=== PATIENT | male | born 1995 | race Caucasian/White ===

== ENCOUNTER 2024-11-27 15:29 | Emergency (ER) | payer BC, SELFPAY ==
[2024-11-27 15:30] VITALS: BP 147/83; PULSE 85; RESP 16; TEMP 36.7; O2SAT 100; BMI 32.1
[2024-11-27 18:08] VITALS: BP 134/78; PULSE 88; RESP 16; O2SAT 100
--- NOTE | 2024-11-27 18:43 | EX.ED.GENINJ ---
HPI History of Present Illness Chief Complaint: Bite Informant: patient Narrative Narrative: Patient is a 29-year-old [id number] male with no significant past medical history presenting with dog bite to his right arm and hand. Patient was breaking up a fight between his dog and his parents dog. Both dogs are up-to-date on their vaccinations. He is not sure which dog bit him but he sustained bites and some scratches. I came in for further wound care and evaluation. No other complaints or concerns at this time. Denies any associate numbness or tingling Tetanus Immunization: 5-10 years PFSH PFS Home Medications ?Medication ?Instructions ?Recorded ?Last Taken ?Type amoxicillin 875 mg-potassium 1 tab PO BID #10 tabs 11/27/24 Unknown Rx clavulanate 125 mg tablet Allergy/AdvReac Type Severity Reaction Status Date / Time No Known Allergies Allergy Verified 11/27/24 16:33 Social History Smoking Status: Never smoker ROS ROS ED Constitutional Constitutional ED: Denies chills or fever(s) Musculoskeletal Musculoskeletal: Reports other Details: Pain in the right forearm Integumentary Reports Abrasions and other Details: Dog bite to right forearm Neurologic Neurologic: Denies paresthesias or weakness Hematologic/Lymphatic Hematologic/Lymphatic: Denies easy bleeding or easy bruising EXAM Physical Exam Const Vital Signs: 11/27/24 15:30 11/27/24 18:08 Temperature 98.1 F Temperature Source Oral Pulse Rate 85 88 Respiratory Rate 16 16 Blood Pressure 147/83 H 134/78 H Blood Pressure Mean 104 96 Pulse Ox 100 100 Oxygen Delivery Method Room Air Positive well nourished and well developed General Appearance ED: well developed and NAD HEENT atraumatic Chest Wall inspection of chest normal Resp normal respiratory effort Cardio regular rhythm Cardio Narrative: 2+ radial pulses present Rate: regular rate Extremity normal to inspection and full ROM Extremity Narrative: No deformity of the extremity. Mild tenderness near the dog bites in the forearm. Normal range of motion of the hand and normal intrinsic movements of the right hand. Neuro oriented x3, moves all extremities, no focal motor deficits and no sensory deficits noted Psych mental status grossly normal and thought process normal Skin Skin Narrative: Very small abrasion wound to right hand?palmar aspect. There are some scattered superficial abrasions that did not break the skin on the dorsal and ventral aspect of the hand. There is a nonbleeding small wound to the dorsal aspect of the distal forearm. On the proximal ventral forearm there is approximately 1 cm puncture wounds with mild gaping. Minimally bleeding. No foreign body appreciated. MDM MDM MDM Narrative Medical decision making narrative: Patient evaluated for dog bite to his right hand. He has a couple very small wounds and one 1 cm puncture wound to the forearm. Because of increased risk of infection will clean and closed with Steri-Strip but allow to heal by secondary intent as I do not want to increase his risk of infection. Patient is agreeable with this. Patient is updated on his tetanus. Will be started empirically on Augmentin. Given wound care instructions. Given return instructions. Discharged home in stable improved condition. I do not think patient requires imaging. Low suspicion for retained foreign body as all the dogs were 2 to 5 years old do not puppies were concerned of the tooth falling out. Low suspicion for any underlying fractures of appendectomy bony tenderness. Low suspicion for compartment syndrome as he does not have pain along his compartments and has an open wounds. Discharge Plan Triage Chief Complaint: Bite ED Provider: Yamilka Humphreys Dx/Rx/DC Orders Clinical Impression: Dog bite of right forearm Instructions: ED Dog Bite Prescriptions: New amoxicillin-pot clavulanate 875-125 mg tablet 1 tab PO BID Qty: 10 0RF Primary Care Provider: Steve Nicolas Referrals: Steve Nicolas DO [Primary Care Provider] - Activity Restrictions/Additional Instructions: Clean the wounds with gentle, nonscented soap such as Dove as needed. Apply bacitracin to the wounds. A Steri-Strip will fall off in the next few days. Follow-up with the wound check to primary care doctor as needed. If you have further concerns please return the emergency room Print Language: Khmer Disposition Disposition: Home, Self Care
[2024-11-27 18:57] VITALS: BP 133/78; PULSE 80; RESP 16; TEMP 36.8; O2SAT 100
== END 2024-11-27 19:09 | disposition home or self-care (01) ==
PROVIDERS: Emergency Provider Emergency Medicine; PCP Family Medicine; Visit Provider Emergency Medicine
DX: S51.831A Puncture wound without foreign body of right forearm, initial encounter (principal); S60.511A Abrasion of right hand, initial encounter; W54.0XXA Bitten by dog, initial encounter; Z23 Encounter for immunization
CPT/HCPCS: 90715; 99282